=== PATIENT | female | born 1940 | race Caucasian/White ===

== ENCOUNTER → 2019-11-03 11:41 | Outpatient (BNVA) | payer MEDICARE, SELFPAY | PROVIDERS: Family Provider Registered Nurse; PCP Registered Nurse; Visit Provider Registered Nurse | DX: E03.9 Hypothyroidism, unspecified (principal); B37.9 Candidiasis, unspecified; E07.9 Disorder of thyroid, unspecified; B37.2 Candidiasis of skin and nail | CPT/HCPCS: 84443 ==

== ENCOUNTER → 2019-11-06 11:08 | Outpatient (BNVA) | payer MEDICARE, SELFPAY | PROVIDERS: Family Provider Registered Nurse; PCP Registered Nurse; Referring Provider Registered Nurse; Visit Provider Internal Medicine Rheumatology | DX: M05.9 Rheumatoid arthritis with rheumatoid factor, unspecified (principal); Z79.899 Other long term (current) drug therapy; M15.9 Polyosteoarthritis, unspecified; M81.0 Age-related osteoporosis without current pathological fracture; E03.9 Hypothyroidism, unspecified; Z79.52 Long term (current) use of systemic steroids | CPT/HCPCS: 99214 ==

== ENCOUNTER → 2019-12-03 08:51 | Outpatient (BNVA) | payer MEDICARE, SELFPAY | PROVIDERS: Family Provider Registered Nurse; PCP Registered Nurse; Visit Provider Registered Nurse | DX: N39.0 Urinary tract infection, site not specified (principal); R10.9 Unspecified abdominal pain; K59.00 Constipation, unspecified; K59.03 Drug induced constipation; T40.2X5A Adverse effect of other opioids, initial encounter; Z79.899 Other long term (current) drug therapy | CPT/HCPCS: 81003 ==

== ENCOUNTER → 2020-01-16 09:09 | Outpatient (BNVA) | payer MEDICARE, SELFPAY | PROVIDERS: Family Provider Registered Nurse; PCP Registered Nurse; Visit Provider Internal Medicine Rheumatology | DX: Z79.899 Other long term (current) drug therapy (principal); K59.03 Drug induced constipation; T40.2X5A Adverse effect of other opioids, initial encounter; M81.0 Age-related osteoporosis without current pathological fracture | CPT/HCPCS: 80076; 82565; 85025; 85651; 86140 ==